=== PATIENT | female | born 1990 | race Caucasian/White ===

== ENCOUNTER 2020-01-12 11:24 | Outpatient (CLI) | payer BC ==
--- NOTE | 2020-01-12 12:15 | RAD ---
LEFT HIP 2 VIEWS: Date: 01/12/2020 HISTORY: Left hip pain. FINDINGS/IMPRESSION: No fracture, dislocation, or bony destruction is seen. Joint space maintained. POS: [facility]
== END 2020-01-12 11:25 | disposition home or self-care (01) ==
LOC: BICRAD 11:24
PROVIDERS: ATTEND Physician Assistant
DX: M25.552 Pain in left hip (principal)

== ENCOUNTER 2020-08-10 12:15 | Outpatient (CLI) | payer BC ==
--- NOTE | 2020-08-10 14:37 | MRI ---
MRI LUMBAR SPINE NONCONTRAST: DATE: 08/10/2020 HISTORY: 30-year-old female with M54.16 lumbar radiculopathy. Low back pain. COMPARISON: None. FINDINGS: For the purposes of this report, it will be assumed that there are five lumbar type vertebrae. Verteb ral body heights are maintained. There is loss of lordosis suggestive of muscle spasm. All disc space s from T12-L1 through L4-5, have normal height and signal. The conus medullaris terminates at L1. All levels from T12-L1 through L3-4, are essentially normal. L4-5: Disc bulge indents the ventral aspect of the thecal sac. This result in mild central spinal can al stenosis and mild thecal sac stenosis. No significant neural foraminal stenosis. L5-S1: Moderate disc space narrowing. Slight degenerative retrolisthesis of L5 on S1. Modic type I en d plate marrow changes anteriorly and to the left laterally. In addition to diffuse mild disc bulge, there is a moderately large central, bilateral paracentral extruded disc herniation, left side greate r than right, which significantly compresses the left S1 nerve root and decreases the cross-sectional area of the spinal canal by approximately 30 to 40%. It also abuts the right S1 nerve root. Mild luanne ateral neural foraminal stenosis. IMPRESSION: 1. Moderately large disc extrusion at L5-S1 compressing the left S1 nerve root. 2. High grade degenerative disc disease at L5-S1. Code T JN R POS: [facility]
== END 2020-08-10 12:16 | disposition home or self-care (01) ==
LOC: BICMRI 12:15
PROVIDERS: ATTEND Physician Assistant
DX: M51.27 Other intervertebral disc displacement, lumbosacral region (principal); M51.17 Intervertebral disc disorders with radiculopathy, lumbosacral region
CPT/HCPCS: 72148